=== PATIENT | male | born 1960 | race Caucasian/White ===

== ENCOUNTER → 2021-08-29 | Outpatient (CLI) | payer OTHER ==
[~2021-08-29] MED LIST: ASPI325 PO; ATOR10 PO; CEPH500 PO; ESOM20; HYDACE5 PO; KETO10 PO; Nexium40 MG PO; OXYACE5T PO; PROM25 PO; Prinivil10 MG PO; RXHYDACE PO; RXOXYACE PO; TAMS.4ER PO
== END | disposition home or self-care (01) ==
LOC: LAB SHORT 12:00
DX: N39.0 Urinary tract infection, site not specified (principal)
CPT/HCPCS: 87086

== ENCOUNTER → 2021-11-15 | Outpatient (CLI) | payer OTHER ==
[2021-11-16 14:18] LABS: Source, Urine Voided
[2021-11-16 15:37] LABS: Bacteria Rare /hpf; Red Blood Cells, Urine 0-2 /hpf (0-2); Squamous Epithelial Cells Rare /hpf (Few); White Blood Cells, Urine 0-2 /hpf (0-5)
== END ==
LOC: LAB SHORT 14:14
PROVIDERS: Family Medicine
DX: N39.0 Urinary tract infection, site not specified (principal)
CPT/HCPCS: 81015; 87086